=== PATIENT | female | born 1955 | race Caucasian/White ===

== ENCOUNTER → 2023-11-07 | Outpatient (CLI) | payer OTHER ==
[~2023-11-07] MED LIST: ACET-2247 PO; ACET-66 PO; ASPI-556 PO; BENA10TA77 PO; CALCIUM PO; DIPH-764 PO; MULT-1283 PO; TRAM50TA4 PO
== END | disposition home or self-care (01) ==
LOC: RAH 08:41
PROVIDERS: ATTEND Internal Medicine
DX: R10.2 Pelvic and perineal pain (principal)
CPT/HCPCS: 76856